=== PATIENT | male | born 1960 | race Caucasian/White ===

== ENCOUNTER → 2024-03-30 06:23 | Day surgery (SDC) | payer OTHER, SELFPAY ==
[2024-03-30 07:09] LABS: Glucose - Point of Care 155 mg/dl (70-99)
== END ==
LOC: GI 06:23
PROVIDERS: ATTENDING PHYSICIAN Student in an Organized Health Care Education/Training Program
DX: Z12.11 Encounter for screening for malignant neoplasm of colon (principal); Z86.0101 Personal history of adenomatous and serrated colon polyps; K64.9 Unspecified hemorrhoids; K62.89 Other specified diseases of anus and rectum; K57.30 Diverticulosis of large intestine without perforation or abscess without bleeding; D12.2 Benign neoplasm of ascending colon; D12.0 Benign neoplasm of cecum; D12.3 Benign neoplasm of transverse colon
CPT/HCPCS: 45385; 45381; 45380; 88305; 82962

== ENCOUNTER 2024-06-08 06:43 | Day surgery (SDC) | payer OTHER, SELFPAY ==
[2024-06-08 09:37] VITALS: BMI 35.3
[2024-06-08 09:38] VITALS: BMI 35.3
[2024-06-08 09:38] LABS: Glucose - Point of Care 150 mg/dl (70-99)
[2024-06-08 09:44] VITALS: BP 159/82
[2024-06-08 11:42] LABS: Glucose - Point of Care 105 mg/dl (70-99)
[2024-06-08 13:23] VITALS: BP 130/74
[2024-06-08 13:30] VITALS: BP 107/74
[2024-06-08 13:45] VITALS: BP 144/68
== END 2024-06-08 14:30 | disposition home or self-care (01) ==
LOC: GI 06:43
PROVIDERS: ATTENDING PHYSICIAN Internal Medicine Gastroenterology
DX: K57.30 Diverticulosis of large intestine without perforation or abscess without bleeding (principal); K64.0 First degree hemorrhoids; D12.2 Benign neoplasm of ascending colon; D12.3 Benign neoplasm of transverse colon
CPT/HCPCS: 45390; 45385; 88305; 82962

== ENCOUNTER 2024-12-11 06:25 | Day surgery (SDC) | payer OTHER, SELFPAY ==
[2024-12-11 07:11] LABS: Glucose - Point of Care 108 mg/dl (70-99)
== END 2024-12-11 08:55 | disposition home or self-care (01) ==
LOC: GI 06:25
PROVIDERS: ATTENDING PHYSICIAN Student in an Organized Health Care Education/Training Program
DX: Z12.11 Encounter for screening for malignant neoplasm of colon (principal); K57.30 Diverticulosis of large intestine without perforation or abscess without bleeding; Z98.890 Other specified postprocedural states; Z86.0101 Personal history of adenomatous and serrated colon polyps; D12.3 Benign neoplasm of transverse colon; K63.5 Polyp of colon
CPT/HCPCS: 45385; 45380; 82962; 88305

== ENCOUNTER 2025-02-16 06:05 | Day surgery (SDC) | payer OTHER, SELFPAY ==
[2025-02-16 07:15] VITALS: BP 154/84
[2025-02-16 07:18] VITALS: BMI 33.7
[2025-02-16 07:20] VITALS: BMI 33.7
[2025-02-16 07:26] LABS: Glucose - Point of Care 116 mg/dl (70-99)
[2025-02-16 09:25] VITALS: BP 135/77
[2025-02-16 09:30] VITALS: BP 120/71
[2025-02-16 09:45] VITALS: BP 139/78
== END 2025-02-16 10:00 | disposition home or self-care (01) ==
LOC: GI 06:05
PROVIDERS: ATTENDING PHYSICIAN Internal Medicine Gastroenterology
DX: Z12.11 Encounter for screening for malignant neoplasm of colon (principal); D12.3 Benign neoplasm of transverse colon; K63.5 Polyp of colon; K57.30 Diverticulosis of large intestine without perforation or abscess without bleeding; K64.0 First degree hemorrhoids; Z86.0101 Personal history of adenomatous and serrated colon polyps; Z98.890 Other specified postprocedural states
CPT/HCPCS: 45388; 45385; 82962; 88305